=== PATIENT | male | born 1990 ===

== ENCOUNTER 2022-01-03 08:06 | Inpatient (IN) | payer OTHER ==
[~2022-01-03] VITALS: Ht 152.4 cm; Wt 74.4 kg
[2022-01-03 12:00] LABS: BUN/CREAT RATIO (CALC) 21.1 RATIO; CREATININE 0.71 mg/dL (0.67-1.17)
[2022-01-03 12:03] LABS: HCT 47.8 % (42.0-52.0); HGB 16.1 g/dl (13.2-18.0); MCH 29.4 pg (25.0-31.0); MCHC 33.7 g/dL (32.0-36.0); MCV 87.2 fL (78.0-100.0); MPV 10.7 fL (6.0-9.5); RBC 5.48 M/uL (4.70-6.00); WBC 8.5 K/uL (4.0-10.5)
[2022-01-04 07:23] LABS: HCT 40.4 % (42.0-52.0); HGB 13.8 g/dl (13.2-18.0); MCHC 34.2 g/dL (32.0-36.0); MCV 87.8 fL (78.0-100.0); MPV 10.7 fL (6.0-9.5); RBC 4.6 M/uL (4.70-6.00); RDW 13.2 % (11.5-14.0); WBC 12.4 K/uL (4.0-10.5)
[2022-01-04 07:27] LABS: BUN/CREAT RATIO (CALC) 15.1 RATIO; CREATININE 0.73 mg/dL (0.67-1.17); POTASSIUM 4.2 mmol/L (3.5-5.1)
[2022-01-05 07:04] LABS: HCT 39.5 % (42.0-52.0); HGB 13.5 g/dl (13.2-18.0); MCH 30.1 pg (25.0-31.0); MCHC 34.2 g/dL (32.0-36.0); MPV 10.8 fL (6.0-9.5); RBC 4.49 M/uL (4.70-6.00); RDW 13.2 % (11.5-14.0); WBC 9.4 K/uL (4.0-10.5)
[2022-01-05 07:28] LABS: CREATININE 0.8 mg/dL (0.67-1.17); POTASSIUM 3.7 mmol/L (3.5-5.1)
[2022-01-05] MEDS ORDERED: MOTRIN600 MG PO (11:19)
[2022-01-05] MEDS ORDERED: COLACE100 MG PO (11:19)
[2022-01-05] MEDS ORDERED: OXY-IR 5MG5 MG PO (11:19)
[2022-01-05] MEDS ORDERED: ACETAMINOPHEN500 M1 PO (11:19)
[2022-01-05] MEDS ORDERED: AUGMENTIN 875-1 EACH PO (11:19)
== END 2022-01-05 14:36 | disposition home or self-care (01) | DRG 335 ==
LOC: FAS 08:06 → FMS 17:45 → FAS 17:51 → FMS 17:52
PROVIDERS: ADMIT Student in an Organized Health Care Education/Training Program
PROC: 0DTJ0ZZ Resection of Appendix, Open Approach (ICD-10-PCS; principal; 2022-01-05)
PROC: 0DNU4ZZ Release Omentum, Percutaneous Endoscopic Approach (ICD-10-PCS; 2022-01-05)
PROC: 0WJG4ZZ Inspection of Peritoneal Cavity, Percutaneous Endoscopic Approach (ICD-10-PCS; 2022-01-05)
PROC: 0W9H00Z Drainage of Retroperitoneum with Drainage Device, Open Approach (ICD-10-PCS; 2022-01-05)
DX: K35.33 Acute appendicitis with perforation, localized peritonitis, and gangrene, with abscess (principal); K68.19 Other retroperitoneal abscess; K38.3 Fistula of appendix
CPT/HCPCS: 36415; 80048; J0690; J1100; J1170; J1644; J1650; J1885; J2250; J2405; J2543; J2704; J2710; J3010; J7120